=== PATIENT | female | born 1990 | race African-American/Black ===

== ENCOUNTER 2017-02-13 13:31 | Emergency (ER) | payer SELFPAY ==
[2017-02-13] MEDS ORDERED: AMOXICILLIN TR/POT CLAVULANATE 500-125 MG TAB PO ONE (14:31)
[2017-02-13] MEDS ORDERED: DIPH/PERTUSS(ACELL)/TETANUS VAC/PF 0.5 ML SYR (>=10YO) IM ONE (14:31)
--- NOTE | 2017-02-13 14:32 | ER Document Report ---
ED Animal Bite - General Chief Complaint: Dog Bite Stated Complaint: LEFT ABDOMINAL PAIN Time Seen by Provider: 02/13/17 13:52 Mode of Arrival: Ambulatory Information source: Patient Notes: 26-year-old female presents to ED for a dog bite to the left lower abdomen. She states she went to her neighbor's house to borrow some lower and when the neighbor went to the kitchen the dog attacked her. There are several small scrapes or lacerations to the left lower abdomen. None of them look infected red or inflamed. There is no bleeding. Patient states she came to the emergency room because she was concerned that she needed antibiotics or baby shots. She states the doctor did not look sick when she was in the house. She states she does not know when her last tetanus shot was. TRAVEL OUTSIDE OF THE [place] IN LAST 30 DAYS: No - HPI Location of injury: Abdomen Severity of injury: Scratched, Bitten Onset: Yesterday Quality of pain: Sharp Pain Level: 3 Severity: Moderate Context of attack: "Unprovoked" attack, Entered animal's domain Type of animal: Dog Appearance of animal: Appeared well Animal's immunizations: Unknown Animal captured or known: Yes Animal control notified: Yes Animal control form completed: Yes - Related Data Allergies/Adverse Reactions: No Known Allergies Allergy (Verified 02/13/17 13:46) Past Medical History - General Information source: Patient - Social History Smoking Status: Former Smoker Cigarette use (# per day): No Chew tobacco use (# tins/day): No Smoking Education Provided: No Frequency of alcohol use: None Drug Abuse: None Lives with: Spouse/Significant other Family History: denies: Arthritis, CAD, COPD, CVA, DM, Hyperlipidemia, Hypertension, Malignancy, Thyroid Disfunction Patient has suicidal ideation: No Patient has homicidal ideation: No - Past Medical History Cardiac Medical History: Reports: None Pulmonary Medical History: Reports: Hx Asthma EENT Medical History: Reports: None Neurological Medical History: Reports: None Endocrine Medical History: Reports: None Renal/ Medical History: Reports: None Malignancy Medical History: Reports: None GI Medical History: Reports: None Musculoskeltal Medical History: Reports None Skin Medical History: Reports None Psychiatric Medical History: Reports: None Traumatic Medical History: Reports: None Infectious Medical History: Reports: None Surgical Hx: Negative - Immunizations Hx Diphtheria, Pertussis, Tetanus Vaccination: Yes Review of Systems - Review of Systems Constitutional: No symptoms reported EENT: No symptoms reported Cardiovascular: No symptoms reported Respiratory: No symptoms reported Gastrointestinal: Other - Superficial laceration to the left lower abdomen from a dog bite Genitourinary: No symptoms reported Female Genitourinary: No symptoms reported Musculoskeletal: No symptoms reported Skin: Other - Superficial lacerations left lower abdomen Hematologic/Lymphatic: No symptoms reported Neurological/Psychological: No symptoms reported Physical Exam - Vital signs Vitals: Temp Pulse Resp BP Pulse Ox 98.5 F 71 16 125/63 100 02/13/17 13:46 02/13/17 13:46 02/13/17 13:46 02/13/17 13:46 02/13/17 13:46 Interpretation: Normal - General General appearance: Appears well, Alert - HEENT Head: Normocephalic, Atraumatic Eyes: Normal Pupils: PERRL - Respiratory Respiratory status: No respiratory distress Chest status: Nontender Breath sounds: Normal Chest palpation: Normal - Cardiovascular Rhythm: Regular Heart sounds: Normal auscultation Murmur: No - Abdominal Inspection: Other - Superficial lacerations to the left lower abdomen from a dog bite no redness complaint inflammation or signs of infection Distension: No distension Bowel sounds: Normal Tenderness: Nontender Organomegaly: No organomegaly - Back Back: Normal, Nontender - Extremities General upper extremity: Normal inspection, Nontender, Normal color, Normal ROM , Normal temperature General lower extremity: Normal inspection, Nontender, Normal color, Normal ROM , Normal temperature, Normal weight bearing. No: Paolo's sign - Neurological Neuro grossly intact: Yes Cognition: Normal Orientation: AAOx4 [place] Coma Scale Eye Opening: Spontaneous [place] Coma Scale Verbal: Oriented [place] Coma Scale Motor: Obeys Commands [place] Coma Scale Total: 15 Speech: Normal Motor strength normal: LUE, RUE, LLE, RLE Sensory: Normal - Psychological Associated symptoms: Normal affect, Normal mood - Skin Skin Temperature: Warm Skin Moisture: Dry Skin Color: Normal Skin irregularity: Laceration - Superficial lacerations to the left lower abdomen from the dog bite Location of irregularity: Abdomen Course - Re-evaluation Re-evalutation: 02/13/17 16:06 Laceration is cleaned with surgical scrub rinse with saline bacitracin applied and a bandage. Patient was treated with Augmentin and she was given a tetanus immunization. Patient was instructed to follow-up with primary doctor. Animal control notified of the dog bite. - Vital Signs Vital signs: Temp Pulse Resp BP Pulse Ox 97.7 F 86 16 111/66 99 02/13/17 14:49 02/13/17 14:49 02/13/17 14:49 02/13/17 14:49 02/13/17 14:49 Discharge - Discharge Clinical Impression: dog bite left abdomen Condition: Stable Disposition: HOME, SELF-CARE Instructions: Family Physicians / Practices Additional Instructions: Animal Bites Animal bites are often heavily contaminated with bacteria. In spite of thorough cleansing and proper treatment, these wounds frequently become infected. Bite wounds of the hands are especially prone to complications. Bites are dressed, if possible. Large wounds may require suturing after internal cleansing. Because of infection risk, some large wounds must remain unstitched. Your doctor is trained to advise you on the best treatment for your bite. Call the doctor at once if the wound becomes red, swollen, warm, increasingly painful, or if it begins to drain. Danger signs also include red streaks up the involved extremity, swollen glands in the groin or under the arm , or fever and chills. The risk of rabies from domestic animals is very low. Bats, sick animals, and wild animals may expose you to rabies. The physician, or the health department, will inform you if you will need to receive the rabies vaccine. Augmentin Augmentin is a mixture of amoxicillin and clavulanate. Amoxicillin is a member of the penicillin family. It covers the germs likely to cause ear, bronchial, and urinary infections better than plain penicillin. The addition of clavulanate allows it to cover staph infections of the skin, as well as resistant cases of ear and sinus infections. Your physician has chosen Augmentin for you because of the special nature of your situation. Augmentin is best taken with meals. Nausea after taking the medication is rare, but can occur. Diarrhea can occur, particularly in small children. Vaginal yeast infections, and oral thrush in infants are also common. Contact your physician if these problems occur. Allergy to penicillins is common. If you have had an allergic reaction to any drug of the penicillin family, you should never take any other penicillin. Notify your doctor at once if you develop hives, shortness of breath, swelling, or faintness. SOAP CLEANSING: Gently wash the wound daily using a mild soap (like Ivory, Phisoderm, Neutrogena). Use warm water, rubbing gently until all debris, ooze, and crusting have been washed from the wound. Allow to dry briefly (about 10 minutes) after cleaning. Repeat this cleansing at least three times a day for the first two days and then once or twice a day. ANTIBIOTIC OINTMENT PROTECTION: Your wounds are such that dressing them is not practical or optional. After cleansing, you should apply a thin coating of antibiotic ointment ( Bacitracin, not Neosporin) to the wounds at least three times daily. This lessens infection risk, and may decrease the amount of scarring. Use a q-tip or dull butter knife, not your finger, to apply this ointment. Any debris or ooze which builds up in the ointment should be gently rubbed off with a sterile gauze pad. Harder crusting may need to be gently scrubbed off with a clean wash cloth with soap and warm water, perhaps applying a warm, wet wash cloth to the wound for ten minutes first. Development of redness, severe itching, or blistering may mean allergy to the ointment. See the doctor. TETANUS IMMUNIZATION GIVEN: You have been given an immunization against tetanus. Please record this in your records. In general, a booster is needed only once every 10 years. The tetanus shot protects against tetanus or "lockjaw," which is a complication of certain wound infections (the tetanus shot cannot protect against the actual infection). The immunization site may become warm and red due to local reaction. If this occurs, apply warm compresses and take aspirin or ibuprofen to reduce inflammation and discomfort. Return for evaluation if the reaction becomes severe. FOLLOW-UP CARE: If you have been referred to a physician for follow-up care, call the physician s office for an appointment as you were instructed or within the next two days. If you experience worsening or a significant change in your symptoms, notify the physician immediately or return to the Emergency Department at any time for re-evaluation. Prescriptions: Amox Tr/Potassium Clavulanate [Augmentin 875-125 Tablet] 1 tab PO BID 10 Days tablet Forms: Return to Work
[2017-02-13 14:51] VITALS: BP 111/66
== END 2017-02-13 14:49 | disposition home or self-care (01) ==
LOC: ER 13:31
DX: S31.119A Laceration without foreign body of abdominal wall, unspecified quadrant without penetration into peritoneal cavity, initial encounter (principal); R10.30 Lower abdominal pain, unspecified; W54.0XXA Bitten by dog, initial encounter; Z87.891 Personal history of nicotine dependence
CPT/HCPCS: 90471; 90715; 99283

== ENCOUNTER 2019-02-15 21:30 | Emergency (ER) | payer SELFPAY ==
[2019-02-15] MEDS ORDERED: DIPHENHYDRAMINE HCL 50 MG/ML VIAL IV ONE (21:47)
[2019-02-15] MEDS ORDERED: METHYLPREDNISOLONE INJ 125 MG/2 ML SDV IV ONE (21:47)
[2019-02-15] MEDS ORDERED: FAMOTIDINE 20 MG TABLET PO ONE (21:47)
[2019-02-15] MEDS ORDERED: EPINEPHRINE INJ/PF 1 MG/1 ML AMPULE IM ONE (21:48)
--- NOTE | 2019-02-15 21:51 | ER Document Report ---
ED Medical Screen (RME) - General Chief Complaint: Allergic Reaction Stated Complaint: POSSIBLE ALLERIC REACTION Time Seen by Provider: 02/15/19 21:46 Mode of Arrival: Ambulatory Information source: Patient Notes: 28-year-old female presented to ED for difficulty breathing and swelling to the lips swelling to the throat. She states that she ate a bandanna about 9:00 and started the reaction soon after. She is audibly wheezing. Significant other states that she ate a banana about 9:00. She states she recently had a reaction to kiwi similar and that she took Benadryl 2 pills at home at the time of the reaction. Solu-Medrol, Benadryl, Pepcid, and epinephrine have been ordered. I have greeted and performed a rapid initial assessment of this patient. A comprehensive ED assessment and evaluation of the patient, analysis of test results and completion of medical decision making process will be conducted by an additional ED providers. TRAVEL OUTSIDE OF THE [place] IN LAST 30 DAYS: No - Related Data Allergies/Adverse Reactions: kiwi Allergy (Verified 02/15/19 21:40) Past Medical History Pulmonary Medical History: Reports: Hx Asthma Renal/ Medical History: Denies: Hx Peritoneal Dialysis - Immunizations Hx Diphtheria, Pertussis, Tetanus Vaccination: Yes Physical Exam - Vital signs Vitals: Temp Pulse Resp BP Pulse Ox 97.9 F 98 22 H 124/72 96 02/15/19 21:35 02/15/19 21:35 02/15/19 21:35 02/15/19 21:35 02/15/19 21:35 Course - Vital Signs Vital signs: Temp Pulse Resp BP Pulse Ox 97.9 F 98 22 H 124/72 96 02/15/19 21:35 02/15/19 21:35 02/15/19 21:35 02/15/19 21:35 02/15/19 21:35
[2019-02-15] MEDS ORDERED: FAMOTIDINE INJ/PF 20 MG/2 ML SDV IV ONE ×2 (21:52)
[2019-02-15] MEDS ORDERED: NORMAL SALINE 1000 ML 1,000 ML IV ONE (22:03)
[2019-02-16 01:06] VITALS: BP 130/74
--- NOTE | 2019-02-16 04:28 | ER Document Report ---
Entered by BALBINA CASTREJON SCRIBE 02/15/19 [id number] Acting as scribe for:DURAN CRANDALL DO ED Allergic Reaction - General Chief Complaint: Allergic Reaction Stated Complaint: POSSIBLE ALLERIC REACTION Time Seen by Provider: 02/15/19 21:46 Mode of Arrival: Ambulatory Information source: Patient Notes: Patient is a 28-year-old female who presents to the emergency department today after complaints of an allergic reaction that occurred just prior to arrival. Patient states her throat felt like it was closing and her lips began swelling shortly after eating a banana tonight. Patient states she recently had an anaphylactic reaction to kiwi which is a new allergy for her. Patient states she has never had any problems with bananas in the past. Patient did eat chocolate and pretzels around the same time which she has not had any allergic reaction to in the past either. TRAVEL OUTSIDE OF THE [place] IN LAST 30 DAYS: No - Related Data Allergies/Adverse Reactions: kiwi Allergy (Verified 02/15/19 21:40) Past Medical History - General Information source: Patient - Social History Smoking Status: Never Smoker Cigarette use (# per day): No Frequency of alcohol use: None Drug Abuse: None Lives with: Family Family History: Reviewed & Not Pertinent Pulmonary Medical History: Reports: Hx Asthma Surgical Hx: Negative - Immunizations Hx Diphtheria, Pertussis, Tetanus Vaccination: Yes Review of Systems - Review of Systems Constitutional: No symptoms reported EENT: See HPI, Throat swelling, Mouth swelling Cardiovascular: No symptoms reported Respiratory: No symptoms reported Gastrointestinal: No symptoms reported Genitourinary: No symptoms reported Female Genitourinary: No symptoms reported Musculoskeletal: No symptoms reported Skin: No symptoms reported Hematologic/Lymphatic: No symptoms reported Neurological/Psychological: No symptoms reported -: Yes All other systems reviewed and negative Physical Exam - Vital signs Vitals: Temp Pulse Resp BP Pulse Ox 97.9 F 98 22 H 124/72 96 02/15/19 21:35 02/15/19 21:35 02/15/19 21:35 02/15/19 21:35 02/15/19 21:35 - Notes Notes: Physical Exam: General: Alert. Moderate distress. HEENT: Normocephalic. Atraumatic. PERRL. Extraocular movements intact. Lips and oropharynx are edematous. Neck: Supple. Non-tender. Respiratory: Mild respiratory distress. Wheezing bilaterally. Cardiovascular: Regular rate and rhythm. Abdominal: Normal Inspection. Non-tender. No distension. Normal Bowel Sounds. Back: No gross abnormalities. Extremities: Moves all four extremities. Upper extremities: Normal inspection. Normal ROM. Lower extremities: Normal inspection. No edema. Normal ROM. Neurological: Normal cognition. AAOx4. Normal speech. Psychological: Normal affect. Normal Mood. Skin: Warm. Dry. Normal color. Course - Re-evaluation Re-evalutation: 02/16/19 00:55 Patient is a 28-year-old female who comes in with difficulty breathing, lip swelling and swelling of her oropharynx. Patient ate a banana, some chocolate and pretzels this evening. She has never had an allergic reaction to these before. She has been allergic to kiwi in the past. Patient states that her lips became swollen and throat became swollen. Began having trouble breathing and felt lightheaded. Exam and symptoms are consistent with an anaphylactic reaction. Patient given epinephrine, Solu-Medrol, famotidine, and Benadryl. Symptoms have completely resolved. She has been monitored for 4 hours with no further symptoms. Ambulates easily. Feels completely better. Will be discharged home with prednisone and an EpiPen. Stable for discharge. Understands agrees with plan. Return if any worsening or concerning symptoms. - Vital Signs Vital signs: Temp Pulse Resp BP Pulse Ox 97.9 F 98 18 130/74 H 100 02/15/19 21:35 02/15/19 21:35 02/15/19 23:55 02/15/19 23:51 02/15/19 23:51 Critical Care Note - Critical Care Note Total time excluding time spent on procedures (mins): 35 - Evaluation and management of anaphylactic reaction, multiple re-evaluations, counseling patient and family. Discharge - Discharge Clinical Impression: Anaphylactic reaction Qualifiers: Encounter type: initial encounter Qualified Code(s): T78.2XXA - Anaphylactic shock, unspecified, initial encounter Condition: Stable Disposition: HOME, SELF-CARE Instructions: Acute Allergic Reaction ([facility]) Prescriptions: Prednisone [Deltasone 20 mg Tablet] 3 tab PO DAILY 3 Days tablet Epinephrine [Epipen 2-Solo] 0.3 mg IM ONCE #1 ml Forms: Return to Work I personally performed the services described in the documentation, reviewed and edited the documentation which was dictated to the scribe in my presence, and it accurately records my words and actions.
== END 2019-02-16 01:20 | disposition home or self-care (01) ==
LOC: ER 21:30
DX: T78.2XXA Anaphylactic shock, unspecified, initial encounter (principal); J45.909 Unspecified asthma, uncomplicated
CPT/HCPCS: 99291; 96361; 96374; 96375; J1200; J0171; J2930; J7030; S0028